=== PATIENT | female | born 1995 | race African-American/Black ===

== ENCOUNTER → 2017-06-22 | Outpatient (CLI) | payer BC ==
[2017-06-22 13:30] LABS: PREG INTERNAL NEGATIVE QC NEG CLEAR BACKGROUND; PREG INTERNAL POSITIVE QC POS CONTROL LINE
== END | disposition home or self-care (01) ==
LOC: C.LAB1850 11:32
PROVIDERS: ATTEND Physician Assistant
DX: N89.8 Other specified noninflammatory disorders of vagina (principal); N91.2 Amenorrhea, unspecified

== ENCOUNTER → 2017-07-27 | Outpatient (CLI) | payer BC ==
[2017-07-27 14:59] LABS: CALCULATED INSULIN SENSITIVITY 0.265; INSULIN FASTING 50.8 mU/L (3-25); INSULIN LOG 1.7059
== END | disposition home or self-care (01) ==
LOC: C.LAB1850 12:52
PROVIDERS: ATTEND Obstetrics & Gynecology
DX: E28.2 Polycystic ovarian syndrome (principal)

== ENCOUNTER → 2017-08-09 | Outpatient (CLI) | payer BC ==
[~2017-08-09] MED LIST: AMOX875T PO; AMPH10TA2 PO; BUPR-79 PO; BUPR200T2 PO; DEXTLIQ81 PO; FAMO20TA9 PO; GLC/500 PO; IBUP-1050 PO; IBUP-1277 PO; IBUP-1451 PO; ONDA4TAB10 SL; PHEN-905 PO; PRED50TA PO; SERT50TA PO; SPR28 PO
== END | disposition home or self-care (01) ==
LOC: C.LAB1850 14:31
PROVIDERS: ATTEND Obstetrics & Gynecology
DX: E88.81 Metabolic syndrome and other insulin resistance (principal)

== ENCOUNTER 2017-09-10 23:16 | Emergency (ER) | payer BC ==
[~2017-09-10] VITALS: Ht 172.7 cm; Wt 133.2 kg
[2017-09-10 23:21] VITALS: TEMP 37.7; Ht 172.7 cm; Wt 133.2 kg
[2017-09-10] MEDS ORDERED: ONDANSETRON INJ 2 MG/ML 2 ML VIAL IV STA (23:39)
[2017-09-10] MEDS ORDERED: SODIUM CHLORIDE 0.9% 1000ML 1,000 ML IV STA (23:41)
[2017-09-10] MEDS ORDERED: ACETAMINOPHEN 500 MG TAB PO STA (23:41)
[2017-09-10] MEDS ORDERED: SERT50TA PO (23:57)
[2017-09-10] MEDS ORDERED: DEXTLIQ81 PO (23:58)
[2017-09-10] MEDS ORDERED: PHEN-905 PO (23:58)
[2017-09-10] MEDS ORDERED: IBUP-1050 PO (23:58)
[2017-09-11 00:31] LABS: BASO % 0.2 %; BASO ABS # 0.01 K/uL (0-0.2); EOS % 3.1 %; EOS ABS # 0.19 K/uL (0-0.5); HEMATOCRIT 42.8 % (37-47); HEMOGLOBIN 14.1 g/dL (12.0-16.0); IG# 0.02 K/uL (0.00-0.02); LYMPH % 41.2 %; MEAN CELL VOLUME 77.1 fL (80-100); MEAN CORPUSCULAR HEMOGLOBIN 25.4 pg (25-34); MEAN CORPUSCULAR HGB CONC 32.9 g/dl (32-36); MEAN PLATELET VOLUME 9.5 fL (7.4-10.4); MONO % 11.5 %; NEUT % 43.7 %; NEUT ABS # 2.65 K/uL (1.4-6.5); PLATELET COUNT 286 K/uL (130-400); RED CELL DISTRIBUTION WIDTH CV 13.9 % (11.5-14.5); RED CELL DISTRIBUTION WIDTH SD 39.6 fL (36.4-46.3); WHITE BLOOD COUNT 6.07 K/uL (4.8-10.8)
[2017-09-11 00:48] LABS: CALCIUM 8.3 mg/dl (8.5-10.1); CREATININE 0.85 mg/dl (0.60-1.20); POTASSIUM 3.7 mmol/L (3.5-5.1)
[2017-09-11 00:49] LABS: INFLUENZA B ANTIGEN Neg for Influ B (NEG)
[2017-09-11] MEDS ORDERED: KETOROLAC TROMETHAMINE 30 MG/ML VIAL IV STA (00:49)
--- NOTE | 2017-09-11 01:39 | EMERGENCY ROOM VISIT NOTE ---
History Report prepared by Gayle: Ki Shin Under the Supervision of: Dr. Naye Suarez D.O. First contact with patient: 23:24 Chief Complaint: FLU LIKE SX Stated Complaint: COUGHING,NAUSEA,BODY ACHE,EYE PAIN,DIARRHEA,HEADAC History of Present Illness The patient is a 22 year old female who presents to the Emergency Room with complaints of persistent generalized illness beginning four days ago. Her symptoms include productive cough, nausea, body aches, subjective fevers, runny nose, sore throat, diarrhea, and headache. She began vomiting today, and vomited two times total. The patient also complains of lower back pain. Her diarrhea improved over the past three days, but returned again today. She denies any blood in her stool or urinary symptoms. The patient states that she has had trouble sleeping since her symptoms began. She has taken DayQuil, NyQuil , and Motrin for her symptoms but has seen no relief. She denies any known sick contacts. The patient denies recent travel. Her symptoms are often worse at night. She has a history of asthma, and states that she has been using her inhaler more often recently. Source of History: patient Onset: Four days ago Position: other (generalized) Quality: other (illness) Timing: other (persistent) Modifying Factors (Worsening): other (night time) Associated Symptoms: + fevers, + headache, + sorethroat, + cough (productive ), + nausea, + vomiting (x2), + abdominal pain (lower), + back pain (lower), + diarrhea, No hematochezia, No urinary symptoms Note: Symptoms: runny nose, body aches, and eye pain. Review of Systems See HPI for pertinent positives & negatives. A total of 10 systems reviewed and were otherwise negative. Past Medical & Surgical Medical Problems: (1) GERD (gastroesophageal reflux disease) (2) PCOS (polycystic ovarian syndrome) Family History No pertinent family history stated. Social History Smoking Status: Never Smoker Occupation Status: [employer] student Current/Historical Medications Scheduled Sertraline (Zoloft), 50 MG PO DAILY Scheduled PRN Dextromethorphan-Phenylephrine (Day-Time Cold/Flu Relief), 1 DOSE PO UD PRN for cold/flu Ibuprofen (Advil), 400 MG PO Q4 PRN for Pain or Fever Nifgvvqelrowx-Vbblwvpyzw-Xxasx (Nyquil Severe Cold/Flu 5-6.25-10-325 mg/15Ml), 1 DOSE PO UD PRN for cold/flu Allergies Coded Allergies: No Known Drug Allergy (Verified Allergy, Unknown, n/a, 09/10/17) Uncoded Allergies: APPLES (Allergy, Unknown, gums swell, 05/31/16) Physical Exam Vital Signs Date Time Temp Pulse Resp B/P (MAP) Pulse Ox O2 Delivery O2 Flow Rate FiO2 09/11/17 02:51 74 16 116/64 98 09/11/17 01:42 97 18 132/82 100 09/11/17 00:06 98 19 121/77 97 Room Air 09/10/17 23:21 37.7 110 20 139/88 97 Room Air Physical Exam GENERAL: alert, well appearing, well nourished, no distress, non-toxic EYE EXAM: normal conjunctiva, PERRL and EOM's grossly intact OROPHARYNX: no exudate, no erythema, lips, buccal mucosa, and tongue normal and mucous membranes are moist NECK: supple, no nuchal rigidity, no adenopathy, non-tender LUNGS: Slight wheeze in the right lung base posteriorly. No rales or rhonchi. No increased work of breathing. HEART: no murmurs, S1 normal and S2 normal ABDOMEN: abdomen soft, non-tender, normo-active bowel sounds, no masses, no rebound or guarding. BACK: Back is symmetrical on inspection and there is no deformity, no midline tenderness, no CVA tenderness. SKIN: no rashes and no bruising UPPER EXTREMITIES: upper extremities are grossly normal. LOWER EXTREMITIES: No pitting edema. NEURO EXAM: Normal sensorium, cranial nerves II-XII grossly intact, normal speech, no gross weakness of arms, no gross weakness of legs. Gross sensation intact. Medical Decision & Procedures ER Provider Diagnostic Interpretation: Two View Chest X-ray interpreted by me: No cardiomegaly. No effusions. No wide mediastinum. No focal infiltrate. Bilateral nipple piercings noted. Laboratory Results 09/10/17 00:05 Red Blood Count 5.55, Mean Corpuscular Volume 77.1, Mean Corpuscular Hemoglobin 25.4, Mean Corpuscular Hemoglobin Concent 32.9, Mean Platelet Volume 9.5, Neutrophils (%) (Auto) 43.7, Lymphocytes (%) (Auto) 41.2, Monocytes (%) (Auto) 11.5, Eosinophils (%) (Auto) 3.1, Basophils (%) (Auto) 0.2, Neutrophils # (Auto ) 2.65, Lymphocytes # (Auto) 2.50, Monocytes # (Auto) 0.70, Eosinophils # (Auto ) 0.19, Basophils # (Auto) 0.01 09/10/17 00:05 Test 09/10/17 00:05 09/11/17 02:00 White Blood Count 6.07 K/uL (4.8-10.8) Red Blood Count 5.55 M/uL (4.2-5.4) Hemoglobin 14.1 g/dL (12.0-16.0) Hematocrit 42.8 % (37-47) Mean Corpuscular Volume 77.1 fL (80-100) Mean Corpuscular Hemoglobin 25.4 pg (25-34) Mean Corpuscular Hemoglobin Concent 32.9 g/dl (32-36) Platelet Count 286 K/uL (130-400) Mean Platelet Volume 9.5 fL (7.4-10.4) Neutrophils (%) (Auto) 43.7 % Lymphocytes (%) (Auto) 41.2 % Monocytes (%) (Auto) 11.5 % Eosinophils (%) (Auto) 3.1 % Basophils (%) (Auto) 0.2 % Neutrophils # (Auto) 2.65 K/uL (1.4-6.5) Lymphocytes # (Auto) 2.50 K/uL (1.2-3.4) Monocytes # (Auto) 0.70 K/uL (0.11-0.59) Eosinophils # (Auto) 0.19 K/uL (0-0.5) Basophils # (Auto) 0.01 K/uL (0-0.2) RDW Standard Deviation 39.6 fL (36.4-46.3) RDW Coefficient of Variation 13.9 % (11.5-14.5) Immature Granulocyte % (Auto) 0.3 % Immature Granulocyte # (Auto) 0.02 K/uL (0.00-0.02) Anion Gap 11.0 mmol/L (3-11) Est Creatinine Clear Calc Drug Dose 151.4 ml/min Estimated GFR () 113.5 Estimated GFR (Non- 97.9 BUN/Creatinine Ratio 11.0 (10-20) Calcium Level 8.3 mg/dl (8.5-10.1) Human Chorionic Gonadotropin, Qual NEG (NEG) Influenza Type A Antigen POS for Influ A (NEG) Influenza Type B Antigen Neg for Influ B (NEG) Urine Color YELLOW Urine Appearance CLEAR (CLEAR) Urine pH 5.0 (4.5-7.5) Urine Specific [place] 1.023 (1.000-1.030) Urine Protein NEG (NEG) Urine Glucose (UA) NEG (NEG) Urine Ketones NEG (NEG) Urine Occult Blood TRACE (NEG) Urine Nitrite NEG (NEG) Urine Bilirubin NEG (NEG) Urine Urobilinogen NEG (NEG) Urine Leukocyte Esterase TRACE (NEG) Urine WBC (Auto) 1-5 /hpf (0-5) Urine RBC (Auto) 5-10 /hpf (0-4) Urine Hyaline Casts (Auto) 1-5 /lpf (0-5) Urine Epithelial Cells (Auto) 10-20 /lpf (0-5) Urine Bacteria (Auto) NEG (NEG) Laboratory results per my review. Medications Administered Medications (Trade) Dose Ordered Sig/Kelly Route Start Time Stop Time Status Last Admin Dose Admin Ondansetron HCl (Zofran Inj) 4 mg NOW STAT IV 09/10/17 23:39 09/10/17 23:41 DC 09/11/17 00:03 4 MG Sodium Chloride 1,000 ml @ 999 mls/hr Q1H1M STAT IV 09/10/17 23:41 09/11/17 00:41 DC 09/11/17 00:03 999 MLS/HR Acetaminophen (Tylenol Tab) 1,000 mg NOW STAT PO 09/10/17 23:41 09/10/17 23:42 DC 09/11/17 00:02 1,000 MG Ketorolac Tromethamine (Toradol Inj) 30 mg NOW STAT IV 09/11/17 00:49 09/11/17 00:50 DC 09/11/17 01:11 30 MG Ondansetron HCl (ZOFRAN ODT 4MG Home Pack) 1 homepack STK-MED ONCE .ROUTE 09/11/17 02:48 09/11/17 02:49 DC 09/11/17 02:49 1 HOMEPA ED Course 2326: The patient was evaluated in room A4B. A complete history and physical exam was performed. 0103: I reassessed the patient. She feels better. I explained her test results to her. 0250: Upon reevaluation, the patient is feeling better. I discussed the findings and the treatment plan with the patient. She verbalizes agreement and understanding. She was discharged home. Medical Decision Differential diagnosis: Etiologies such as viral syndrome, otitis, pharyngitis, pneumonia, influenza, meningitis, urinary tract infection, sepsis, bacteremia, as well as others were entertained. Pt well appearing despite complaints. No recurrent vomiting or diarrhea. Pt felt improved with IVF and meds. Flu A +. Discussed with patient and hydration , treatment of fevers and body aches, rest, symptoms to watch and return for, she verbalized understanding was agreeable with plan. No evidence of pneumonia , doubt bacteremia/sepsis, back pain more likely from body aches is no evidence for UTI. Doubt additional underlying GI pathology, feel her symptoms are related to the flu. Patient well-appearing at time of discharge, vital signs stable throughout, tolerating by mouth. Medication Reconcilliation Current Medication List: was personally reviewed by me Blood Pressure Screening Patient's blood pressure: Normal blood pressure Blood pressure disposition: Did not require urgent referral Impression Primary Impression: Influenza Scribe Attestation The scribe's documentation has been prepared under my direction and personally reviewed by me in its entirety. I confirm that the note above accurately reflects all work, treatment, procedures, and medical decision making performed by me. Departure Information Dispostion Home / Self-Care Referrals No Doctor, Assigned (PCP) Patient Instructions My [facility] Additional Instructions Please try to sip clear liquids at frequent intervals to stay well hydrated, primarily water. You may use tylenol and ibuprofen as needed for fevers and pain. You may continue using your inhaler as needed. You may use the nausea medication as needed. If you have any worsening cough or trouble breathing, have recurrent vomiting or worsening diarrhea, develop lightheadedness, chest pain, rash/sore, notice blood in your sputum, vomit, or stool, or you have any other new or concerning symptoms, please return to the emergency room.
[2017-09-11] MEDS ORDERED: ONDANSETRON HOME PACK 4MG OD TAB ONE (02:48)
[2017-09-11 02:51] VITALS: BP 116/64; PULSE 74; O2SAT 98
--- NOTE | 2017-09-11 06:40 | DIAGNOSTIC IMAGING REPORT ---
CHEST 2 VIEWS ROUTINE CLINICAL HISTORY: cough, f/c dyspnea COMPARISON STUDY: 05/31/2016 FINDINGS: The bones soft tissues and hemidiaphragms are normal. The cardiomediastinal silhouette is normal. The lungs are clear. The pulmonary vasculature is normal. IMPRESSION: Negative chest. The above report was generated using voice recognition software. It may contain grammatical, syntax or spelling errors. Electronically signed by: Vasquez Gonsalves M.D. 09/11/2017 6:38 AM Dictated Date/Time: 09/11/2017 6:38 AM
== END 2017-09-11 02:50 | disposition home or self-care (01) ==
LOC: C.EDB 23:17 → C.EDA 09-11 02:50
DX: J10.1 Influenza due to other identified influenza virus with other respiratory manifestations (principal); J45.909 Unspecified asthma, uncomplicated; K21.9 Gastro-esophageal reflux disease without esophagitis; E28.2 Polycystic ovarian syndrome; Z79.899 Other long term (current) drug therapy

== ENCOUNTER 2017-09-18 22:16 | Emergency (ER) | payer BC ==
[~2017-09-18] VITALS: Ht 170.2 cm; Wt 135.8 kg
[~2017-09-18 22:16] MED LIST changes: -AMOX875T PO; -AMPH10TA2 PO; -BUPR-79 PO; -BUPR200T2 PO; -FAMO20TA9 PO; -GLC/500 PO; -IBUP-1277 PO; -IBUP-1451 PO; -ONDA4TAB10 SL; -PRED50TA PO; -SPR28 PO
[2017-09-18 22:26] VITALS: TEMP 36.4; Ht 170.2 cm; Wt 135.8 kg
--- NOTE | 2017-09-18 23:34 | EMERGENCY ROOM VISIT NOTE ---
History Report prepared by Gayle: Qasim Chang Under the Supervision of: Dr. Marcos Reyes M.D. First contact with patient: 23:25 Chief Complaint: HEADACHE Stated Complaint: HEADACHE History of Present Illness The patient is a 22 year old female who presents to the Emergency Room with complaints of a constant headache beginning a week ago. The patient states that she was diagnosed with influenza a week ago, and has had a headache since. She notes that turning off the lights does not improve her symptoms. She reports that she has been taking Tylenol and ibuprofen with no relief of her symptoms, but has not taken any recent antibiotics. The patient states that her symptoms feel like a pounding sensation and a pressure. She notes that she also occasionally feels dizzy but denies any nausea, vomiting, weakness in her arms/ legs, seizures, and trauma. She reports that her sinuses do not feel clogged. The patient states that the pressure worsens when she lies down. She notes that she has a history of underlying diabetes and polycystic ovarian syndrome. Source of History: patient Onset: a week ago Position: head Quality: pressure, other (pounding) Timing: constant Modifying Factors (Worsening): other (lying down) Associated Symptoms: No nausea, No vomiting Note: She also complains of dizziness. She denies any weakness in her arms/legs, seizures, and clogged sinuses. Review of Systems See HPI for pertinent positives & negatives. A total of 6 systems reviewed and were otherwise negative. Past Medical & Surgical Medical Problems: (1) GERD (gastroesophageal reflux disease) (2) Influenza (3) PCOS (polycystic ovarian syndrome) Family History Diabetes mellitus FH: kidney disease FH: lung disease FHx: cancer FHx: gallbladder disease FHx: heart disease Hypertension Social History Smoking Status: Never Smoker Marital Status: single Housing Status: lives with roommate Occupation Status: [employer] student Current/Historical Medications Scheduled Amoxicillin & Pot Clavulanate (Augmentin 875-125 mg), 875 MG PO BID Prednisone (Prednisone), 50 MG PO DAILY Sertraline (Zoloft), 50 MG PO DAILY Scheduled PRN Dextromethorphan-Phenylephrine (Day-Time Cold/Flu Relief), 1 DOSE PO UD PRN for cold/flu Ibuprofen (Advil), 400 MG PO Q4 PRN for Pain or Fever Kqwsqbwcefiht-Rmritbjhdr-Waale (Nyquil Severe Cold/Flu 5-6.25-10-325 mg/15Ml), 1 DOSE PO UD PRN for cold/flu Allergies Coded Allergies: No Known Drug Allergy (Verified Allergy, Unknown, n/a, 09/18/17) Uncoded Allergies: APPLES (Allergy, Unknown, gums swell, 05/31/16) Physical Exam Vital Signs Date Time Temp Pulse Resp B/P (MAP) Pulse Ox O2 Delivery O2 Flow Rate FiO2 09/19/17 00:11 74 20 150/106 99 09/18/17 22:26 36.4 77 18 132/80 95 Physical Exam GENERAL: Patient is well appearing and in minimal distress. HEENT: No acute trauma, normocephalic atraumatic, mucous membranes moist, no nasal congestion, no scleral icterus. Bulging erythematous right TM, mild erythema to the distal right canal. NECK: No stridor, no adenopathy, no meningismus, trachea is midline. LUNGS: No dyspnea. Clear to auscultation and equal bilaterally. No wheeze, no rhonchi. HEART: Regular rate and rhythm. No murmurs, rubs, gallops appreciated. EXTREMITIES: Normal motion all extremities, no cyanosis, no edema. NEUROLOGIC: Alert and oriented, no acute motor or sensory deficits, no focal weakness, cranial nerves grossly intact. SKIN: No rash, no jaundice, no diaphoresis. Medical Decision & Procedures Medications Administered Medications (Trade) Dose Ordered Sig/Kelly Route Start Time Stop Time Status Last Admin Dose Admin Oxycodone HCl (Roxicodone Immediate Rel 5MG Home Pack) 1 homepack UD ONCE PO 09/18/17 23:45 09/18/17 23:46 DC 09/19/17 00:07 1 HOMEPACK Amoxicillin/ Clavulanate Potassium (Augmentin Tab) 875 mg ONE ONCE PO 09/18/17 23:45 09/18/17 23:46 DC 09/19/17 00:06 875 MG Prednisone (PredniSONE TAB) 60 mg NOW STAT PO 09/18/17 23:34 09/18/17 23:35 DC 09/19/17 00:07 60 MG ED Course 2327: The patient was evaluated in room C2. A complete history and physical exam was performed. 2517: Reevaluated the patient. Discussed results and discharge instructions. She verbalized understanding and agreement. The patient is ready for discharge. Medical Decision 22 yr old female with flu last week now with right ear/head pain, congestion, dizziness on moving and pain worse with laying back. OM on right by exam though there is a bit of erythema of canal itself. She has sinus congestion as well. She has tolerated Prednisone previously thus seems reasonable to help decrease inflammation adding on this. Discussed keeping well hydrated. Made clear if severe thirst and increased urination or other abnormal symptoms we will need to check her BSG. She has no evidence of mastoiditis, meningitis, encephalitis, abscess, dissection, etc. We will treat with augmentin given canal erythema and bulging TM. Reviewed symptoms requiring RTED. Reviewed restrictions regarding narcotics. [place] Drug Monitoring Program Search Results: no issues identified Medication Reconcilliation Current Medication List: was personally reviewed by me Blood Pressure Screening Patient's blood pressure: Elevated blood pressure Blood pressure disposition: Elevated BP felt to be situational Impression Primary Impression: Otitis media, right Scribe Attestation The scribe's documentation has been prepared under my direction and personally reviewed by me in its entirety. I confirm that the note above accurately reflects all work, treatment, procedures, and medical decision making performed by me. Departure Information Dispostion Home / Self-Care Prescriptions Prednisone (PREDNISONE) 50 Mg Tab 50 MG PO DAILY for 4 Days, #4 TAB Prov: Marcos Reyes M.D. 09/18/17 Amoxicillin & Pot Clavulanate (Augmentin 875-125 mg) 1 Tab Tab 875 MG PO BID for 7 Days, #14 TAB Prov: Marcos Reyes M.D. 09/18/17 Referrals [facility] (PCP) Forms HOME CARE DOCUMENTATION FORM, IMPORTANT VISIT INFORMATION Patient Instructions ED Otitis Media Acute Adult, My [facility] Additional Instructions You have received a narcotic pain medicatio. These medications may cause drowsiness and should not be used with other sedative medications. Do not drive , drink alcohol, perform dangerous activities, nor make important decisions after taking these medications. terminal operations manager use or inappropriate use may lead to addiction.
[2017-09-18] MEDS ORDERED: AMOX875T PO (23:36)
[2017-09-18] MEDS ORDERED: PRED50TA PO (23:36)
[2017-09-18] MEDS ORDERED: OXYCODONE IR HOME PACK PO ONE (23:45)
[2017-09-18] MEDS ORDERED: AMOXICILLIN/CLAVULANATE TAB 875 MG TAB PO ONE (23:45)
[2017-09-19 00:11] VITALS: BP 150/106; PULSE 74; O2SAT 99
== END 2017-09-19 00:12 | disposition home or self-care (01) ==
LOC: C.EDB 22:18 → C.EDC 09-19 00:12
DX: H66.91 Otitis media, unspecified, right ear (principal); R51 Headache; R42 Dizziness and giddiness; E11.9 Type 2 diabetes mellitus without complications; E28.2 Polycystic ovarian syndrome; K21.9 Gastro-esophageal reflux disease without esophagitis; Z79.899 Other long term (current) drug therapy; Z91.018 Allergy to other foods; Z82.49 Family history of ischemic heart disease and other diseases of the circulatory system; Z83.3 Family history of diabetes mellitus; Z83.6 Family history of other diseases of the respiratory system; Z83.79 Family history of other diseases of the digestive system; Z84.1 Family history of disorders of kidney and ureter

== ENCOUNTER 2017-09-24 14:26 | Emergency (ER) | payer BC ==
[~2017-09-24] VITALS: Ht 170.2 cm; Wt 134.1 kg
[~2017-09-24 14:26] MED LIST changes: +AMOX875T PO
[2017-09-24 14:30] VITALS: TEMP 36.7; Ht 170.2 cm; Wt 134.1 kg
[2017-09-24] MEDS ORDERED: IBUPROFEN 800 MG TAB PO STA (14:48)
[2017-09-24] MEDS ORDERED: ACETAMINOPHEN 500 MG TAB PO STA (14:48)
--- NOTE | 2017-09-24 14:55 | EMERGENCY ROOM VISIT NOTE ---
History Report prepared by Gayle: Leah Biswas Under the Supervision of: Dr. Ted Benedict M.D. First contact with patient: 14:44 Chief Complaint: HEADACHE Stated Complaint: SEVERE HEADACHE/PRESSURE History of Present Illness The patient is a 22 year old female who presents to the Emergency Room with complaints of a persistent headache that started gradually a couple of hours ago but did not take any medication. She rates her pain a 10/10 in severity. She notes she was here one week ago with headaches but she was diagnosed with ear infection. She was prescribed Amoxicillin and Prednisone. She notes she is still taking the Amoxicillin. She denies any history of migraines. She states Tylenol and Ibuprofen do not work for her symptoms. When she takes Ibuprofen, she takes 2 tablets every 6 hours. She notes she has been experiencing nausea and diarrhea. She denies any vomiting, congestion, body aches, or burning when urinating. The patient notes she had the flu 2 weeks ago. Source of History: patient Onset: a couple of hours ago Position: head Symptom Intensity: 10/10 Timing: other (persistent) Associated Symptoms: + nausea, + diarrhea, No vomiting, No urinary symptoms Review of Systems See HPI for pertinent positives and negatives. A total of ten systems were reviewed and were otherwise negative. Past Medical & Surgical Medical Problems: (1) GERD (gastroesophageal reflux disease) (2) Influenza (3) PCOS (polycystic ovarian syndrome) Family History Diabetes mellitus FH: kidney disease FH: lung disease FHx: cancer FHx: gallbladder disease FHx: heart disease Hypertension Social History Smoking Status: Never Smoker Marital Status: single Housing Status: lives with roommate Occupation Status: [employer] student Current/Historical Medications Scheduled Famotidine (Pepcid), 20 MG PO BID Ondasetron Odt (Zofran Odt), 4 MG SL Q6H Sertraline (Zoloft), 50 MG PO DAILY Scheduled PRN Dextromethorphan-Phenylephrine (Day-Time Cold/Flu Relief), 1 DOSE PO UD PRN for cold/flu Ibuprofen (Advil), 400 MG PO Q4 PRN for Pain or Fever Ibuprofen Tab (Motrin), 800 MG PO Q8H PRN for Pain Dpjfvdlkmjesu-Qhhwwcgait-Oqieb (Nyquil Severe Cold/Flu 5-6.25-10-325 mg/15Ml), 1 DOSE PO UD PRN for cold/flu Allergies Coded Allergies: No Known Drug Allergy (Verified Allergy, Unknown, n/a, 09/24/17) Uncoded Allergies: APPLES (Allergy, Unknown, gums swell, 05/31/16) Physical Exam Vital Signs Date Time Temp Pulse Resp B/P (MAP) Pulse Ox O2 Delivery O2 Flow Rate FiO2 09/24/17 15:23 83 18 138/75 97 09/24/17 14:30 36.7 91 20 128/81 98 Room Air Physical Exam GENERAL: Awake, alert, well-appearing, in no distress HENT: Normocephalic, atraumatic. Oropharynx unremarkable. Dry mucus membranes. Mild injection in right TM. EYES: Normal conjunctiva. Sclera non-icteric. NECK: Supple. No nuchal rigidity. FROM. No JVD. RESPIRATORY: Clear to auscultation. CARDIAC: Regular rate, normal rhythm. Extremities warm and well perfused. Pulses equal. ABDOMEN: Soft, non-distended. No tenderness to palpation. No rebound or guarding. No masses. RECTAL: Deferred. MUSCULOSKELETAL: Chest examination reveals no tenderness. The back is symmetrical on inspection without obvious abnormality. There is no CVA tenderness to palpation. No joint edema. LOWER EXTREMITIES: Calves are equal size bilaterally and non-tender. No edema. No discoloration. NEURO: Normal sensorium. No sensory or motor deficits noted. Normal cerebellar function with uaocvl-zb-tdbu, alternating palms, pnru-wm-pjnw SKIN: No rash or jaundice noted. Medical Decision & Procedures Medications Administered Medications (Trade) Dose Ordered Sig/Kelly Route Start Time Stop Time Status Last Admin Dose Admin Acetaminophen (Tylenol Tab) 1,000 mg NOW STAT PO 09/24/17 14:48 09/24/17 14:58 DC 09/24/17 14:48 1,000 MG Ibuprofen (Motrin Tab) 800 mg NOW STAT PO 09/24/17 14:48 09/24/17 14:58 DC 09/24/17 14:48 800 MG Famotidine (Pepcid Tab) 20 mg NOW ONCE PO 09/24/17 15:00 09/24/17 15:01 DC 09/24/17 15:00 20 MG Ondansetron HCl (Zofran Odt) 4 mg ONE ONCE PO 09/24/17 15:00 09/24/17 15:01 DC 09/24/17 15:00 4 MG ED Course 1444: The patient was evaluated in room B2. A complete history and physical exam was performed. 1535: I reevaluated the patient. Discussed results and discharge instructions: She verbalized understanding and agreement. The patient is ready for discharge. Medical Decision I reviewed the patient's past medical history, medications, and the nursing notes as described above. Differential diagnosis: Etiologies such as migraine headache, meningitis, sinusitis, CO exposure, ICH, SAH, infection, tumor, headache, sinus thrombosis, arterial dissection, as well as others were entertained. The patient is a 22 y/o woman presents to the emergency department with DYKES that began gradually 2 hours RN ANESTHESIOLOGY in the setting of being treated for right OM after seen in ED last week per HPI. Of note, patient had flu like sx 2 weeks ago. On arrival, the patient is well-appearing, AFVSS. Neuro intact, including normal cerebellar function with jgkucc-ne-bdcv, alternating palms, rwkc-kq-lfhi. Neck supple, FROM. Given patient has not taken anything for her DYKES and is otherwise well-appearing, no indication for further w/u. Plan for PO APAP/IB, PO hydration. pepcid/zofran and [facility] f/u. Findings and plan for follow-up reviewed with patient. Patient agreeable and d/c'd per discharge instructions. Medication Reconcilliation Current Medication List: was personally reviewed by me Impression Primary Impression: Tension headache Scribe Attestation The scribe's documentation has been prepared under my direction and personally reviewed by me in its entirety. I confirm that the note above accurately reflects all work, treatment, procedures, and medical decision making performed by me. Departure Information Dispostion Home / Self-Care Prescriptions Famotidine (PEPCID) 20 Mg Tab 20 MG PO BID for 10 Days, #20 TAB Prov: Ted Benedict M.D. 09/24/17 Ondasetron Odt (ZOFRAN ODT) 4 Mg Tab 4 MG SL Q6H for Nausea, #10 TAB Prov: Ted Benedict M.D. 09/24/17 Ibuprofen Tab (MOTRIN) 800 Mg Tab 800 MG PO Q8H Y for Pain, #21 TAB Prov: Ted Benedict M.D. 09/24/17 Referrals No Doctor, Assigned (PCP) Patient Instructions ED Headache Tension, My [facility] Additional Instructions Please follow up with [facility] in the next 1-2 days for re-evaluation. You likely have a tension headache. Otherwise, your exam did not show signs of an emergent condition at this time. Continue your current antibiotic. Acetaminophen or ibuprofen for pain and fevers as needed. Pepcid for acid reduction. Zofran as needed for nausea. Drink plenty of fluids to ensure hydration. Return to the emergency department for worsening symptoms as described in the accompanying instructions.
[2017-09-24] MEDS ORDERED: FAMOTIDINE 20 MG TAB PO ONE (15:00)
[2017-09-24] MEDS ORDERED: ONDANSETRON 4MG OD TAB PO ONE (15:00)
[2017-09-24] MEDS ORDERED: FAMO20TA9 PO (15:01)
[2017-09-24] MEDS ORDERED: ONDA4TAB10 SL (15:01)
[2017-09-24] MEDS ORDERED: IBUP-1451 PO (15:01)
[2017-09-24 15:23] VITALS: BP 138/75; PULSE 83; O2SAT 97
== END 2017-09-24 15:24 | disposition home or self-care (01) ==
LOC: C.EDB 14:29
DX: G44.209 Tension-type headache, unspecified, not intractable (principal); R19.7 Diarrhea, unspecified; K21.9 Gastro-esophageal reflux disease without esophagitis; E28.2 Polycystic ovarian syndrome; Z87.09 Personal history of other diseases of the respiratory system; Z83.3 Family history of diabetes mellitus; Z82.49 Family history of ischemic heart disease and other diseases of the circulatory system; Z79.899 Other long term (current) drug therapy

== ENCOUNTER 2017-10-06 16:28 | Emergency (ER) | payer BC ==
[~2017-10-06] VITALS: Ht 170.2 cm; Wt 136.3 kg
[~2017-10-06 16:28] MED LIST changes: -AMOX875T PO; +IBUP-1451 PO; +ONDA4TAB10 SL; -SERT50TA PO
[2017-10-06 16:31] VITALS: TEMP 36.8; Ht 170.2 cm; Wt 136.3 kg
[2017-10-06 17:22] LABS: HEMATOCRIT 41.6 % (37-47); HEMOGLOBIN 13.5 g/dL (12.0-16.0); MEAN CELL VOLUME 77.6 fL (80-100); MEAN CORPUSCULAR HEMOGLOBIN 25.2 pg (25-34); MEAN CORPUSCULAR HGB CONC 32.5 g/dl (32-36); MEAN PLATELET VOLUME 9.4 fL (7.4-10.4); PLATELET COUNT 306 K/uL (130-400); RED CELL DISTRIBUTION WIDTH CV 14.4 % (11.5-14.5); RED CELL DISTRIBUTION WIDTH SD 40.6 fL (36.4-46.3); WHITE BLOOD COUNT 7.51 K/uL (4.8-10.8)
[2017-10-06] MEDS ORDERED: IBUP-1277 PO (17:26)
[2017-10-06 17:47] LABS: ALBUMIN 3.6 gm/dl (3.4-5.0); ALT/SGPT 62 U/L (12-78); BLOOD UREA NITROGEN 10 mg/dl (7-18); CALCIUM 8.7 mg/dl (8.5-10.1); CARBON DIOXIDE 23 mmol/L (21-32); CREATININE 0.67 mg/dl (0.60-1.20); GLUCOSE 112 mg/dl (70-99); POTASSIUM 3.8 mmol/L (3.5-5.1); SODIUM 139 mmol/L (136-145)
[2017-10-06 17:58] LABS: ALKALINE PHOSPHATASE 72 U/L (45-117); AST/SGOT 35 U/L (15-37); TOTAL PROTEIN 7.4 gm/dl (6.4-8.2)
[2017-10-06 18:22] VITALS: BP 145/86; PULSE 72; O2SAT 94
--- NOTE | 2017-10-06 22:41 | EMERGENCY ROOM VISIT NOTE ---
History Report prepared by Gayle: Alfred Mcelroy Under the Supervision of: Dr. River Archibald M.D. 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 She states that she has been having suicidal thoughts more than normal. She notes the thoughts have been more "heavy," and yesterday she had a plan to commit suicide. She cut her left wrist yesterday. She states that she would rather take Ibuprofen, though she did not admit to taking any. She states that she looked up how much to take. She went to see a counselor at [facility] yesterday. She states that she has been following up with a psychiatrist for depression and anxiety. She was seen by her psychiatrist today and they recommended she come to the ED for evaluation. She states that she was not prepared to come to the ED. She states that she came in by police because it was a free ride. She reports that she has some academic stressors, because she feels that she is not doing well in college. 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 She also states that she slept through an interview that she was supposed to help out with. She denies any history of hospitalizations due to depression. She states that she has never had a plan before yesterday. She states that she has "underlying" diabetes and sees an generation engineering technologist, though she has not had the blood tests yet to begin treatment. She was placed on Zoloft at the beginning of the school year and is still taking it. She reports recently having the flu and an ear infection, for which she was prescribed Amoxicillin and Prednisone. She denies any fevers, vomiting, chest pain, or abdominal pain. She denies any chance of . She denies any use of illicit drugs or alcohol. Source of History: patient Onset: yesterday Position: other (global) Quality: other (suicidal gesture) Timing: other (episodic) Modifying Factors (Relieving): other (None) Associated Symptoms: No fevers, No chest pain, No vomiting, No abdominal pain Review of Systems See HPI for pertinent positives & negatives. A total of 10 systems reviewed and were otherwise negative. Past Medical & Surgical Medical Problems: (1) Anxiety (2) Depression (3) GERD (gastroesophageal reflux disease) (4) Influenza (5) PCOS (polycystic ovarian syndrome) Family History Diabetes mellitus FH: kidney disease FH: lung disease FHx: cancer FHx: gallbladder disease FHx: heart disease Hypertension Social History Smoking Status: Former Smoker Smokeless Tobacco Use: No Alcohol Use: none Drug Use: none Marital Status: single Housing Status: lives with roommate Occupation Status: [employer] student Current/Historical Medications Scheduled Sertraline (Zoloft), 75 MG PO DAILY Scheduled PRN Ibuprofen (Advil), 400-600 MG PO Q6H PRN for Pain or Fever Allergies Coded Allergies: No Known Drug Allergy (Verified Allergy, Unknown, n/a, 09/24/17) Uncoded Allergies: APPLES (Allergy, Unknown, gums swell, 05/31/16) Physical Exam Vital Signs Date Time Temp Pulse Resp B/P (MAP) Pulse Ox O2 Delivery O2 Flow Rate FiO2 10/06/17 18:22 72 18 145/86 94 Room Air 10/06/17 16:31 36.8 86 18 137/88 94 Room Air Physical Exam Constitutional: Vital signs reviewed. Eyes: Pupils are equal round reactive to light. Conjunctiva are noninjected. ENT: Pharynx is clear without erythema or exudate. Mucous membranes are moist. Neck supple without meningeal signs. Respiratory: Clear to auscultation bilaterally. Breath sounds are equal bilaterally. Cardiovascular: Regular rate and rhythm. No rubs or gallops. GI: Soft, nondistended and nontender. Bowel sounds are present. Musculoskeletal: Very superficial lacerations to the volar aspect of the left distal wrist. No signs of bleeding or infection. Integumentary: No cyanosis. Neurological: The patient is awake and alert. No focal deficits. Psychiatric: Depressed affect. Medical Decision & Procedures Laboratory Results 10/06/17 17:04 10/06/17 17:04 Test 10/06/17 17:04 10/06/17 17:52 Red Blood Count 5.36 M/uL (4.2-5.4) Mean Corpuscular Volume 77.6 fL (80-100) Mean Corpuscular Hemoglobin 25.2 pg (25-34) Mean Corpuscular Hemoglobin Concent 32.5 g/dl (32-36) RDW Standard Deviation 40.6 fL (36.4-46.3) RDW Coefficient of Variation 14.4 % (11.5-14.5) Mean Platelet Volume 9.4 fL (7.4-10.4) Anion Gap 7.0 mmol/L (3-11) Est Creatinine Clear Calc Drug Dose 191.8 ml/min Estimated GFR () 145.6 Estimated GFR (Non- 125.7 BUN/Creatinine Ratio 15.1 (10-20) Calcium Level 8.7 mg/dl (8.5-10.1) Total Bilirubin 0.3 mg/dl (0.2-1) Direct Bilirubin < 0.1 mg/dl (0-0.2) Aspartate Amino Transf (AST/SGOT) 35 U/L (15-37) Alanine Aminotransferase (ALT/SGPT) 62 U/L (12-78) Alkaline Phosphatase 72 U/L (45-117) Total Protein 7.4 gm/dl (6.4-8.2) Albumin 3.6 gm/dl (3.4-5.0) Thyroid Stimulating Hormone (TSH) 0.866 uIu/ml (0.300-4.500) Salicylates Level < 1.7 mg/dl (2.8-20) Acetaminophen Level < 2 ug/ml (10-30) Ethyl Alcohol mg/dL < 3.0 mg/dl (0-3) Urine Color YELLOW Urine Appearance CLEAR (CLEAR) Urine pH 5.0 (4.5-7.5) Urine Specific [place] 1.028 (1.000-1.030) Urine Protein NEG (NEG) Urine Glucose (UA) NEG (NEG) Urine Ketones TRACE (NEG) Urine Occult Blood NEG (NEG) Urine Nitrite NEG (NEG) Urine Bilirubin NEG (NEG) Urine Urobilinogen NEG (NEG) Urine Leukocyte Esterase TRACE (NEG) Urine WBC (Auto) 1-5 /hpf (0-5) Urine RBC (Auto) 0-4 /hpf (0-4) Urine Hyaline Casts (Auto) 0 /lpf (0-5) Urine Epithelial Cells (Auto) >30 /lpf (0-5) Urine Bacteria (Auto) NEG (NEG) Urine Test NEG (NEG) Urine Opiates Screen NEG (NEG) Urine Methadone, Qualitative NEG (NEG) Urine Barbiturates NEG (NEG) Urine Phencyclidine (PCP) Level NEG (NEG) Ur Amphetamine/Methamphetamine NEG (NEG) MDMA (Ecstasy) Screen NEG (NEG) Urine Benzodiazepines Screen NEG (NEG) Urine Cocaine Metabolite NEG (NEG) Urine Marijuana (THC) NEG (NEG) Laboratory results as reviewed by me. ED Course 164: The patient was evaluated in room C10. A complete history and physical exam was performed. 1757: I spoke with [facility]. I informed her that the patient has been moved to room A6. 1949: I spoke with Teresa, [facility]. She is trying to place the patient. 2223: I spoke with [facility]. The patient is voluntary. The patient has been placed at [facility]. Medical Decision This is a 22-year-old female who presents for mental health evaluation. I did perform a limited focused review of portions of the patient's old chart on the electronic medical record. The patient was seen September 24, 2017 for a headache. She was diagnosed with a tension headache. I did evaluate the patient as noted above. I did order and personally review the patient's urinalysis as described above. I did order and review the patient 's blood work as noted in the electronic medical record. I did medically clear the patient. I did have the mental health caseworker evaluate the patient. She agreed with my assessment that the patient requires inpatient psychiatric care in a safe environment. Patient was accepted to the [facility] for voluntary placement. She was transferred to the [facility] securely. Medication Reconcilliation Current Medication List: was personally reviewed by me Blood Pressure Screening Patient's blood pressure: Elevated blood pressure Blood pressure disposition: Referred to PCP Impression Primary Impression: Mood disorder Additional Impression: Suicide gesture Scribe Attestation The scribe's documentation has been prepared under my direct and personally reviewed by me in its entirety. I confirm that the note above accurately reflects all work, treatment, procedures, and medical decision making performed by me. Departure Information Dispostion Mental [facility] Acute Care ([facility]) Referrals [facility] (PCP) Patient Instructions My [facility] Problem Qualifiers Additional Impression: Suicide gesture Encounter type: initial encounter Qualified Codes: X83.8XXA - Intentional self-harm by other specified means, initial encounter
[2017-10-06] MEDS ORDERED: SERT50TA PO (23:57)
== END 2017-10-06 23:36 ==
LOC: C.EDB 16:29 → C.EDA 23:36
DX: R45.851 Suicidal ideations (principal); F32.9 Major depressive disorder, single episode, unspecified; E11.9 Type 2 diabetes mellitus without complications; E28.2 Polycystic ovarian syndrome; Z87.891 Personal history of nicotine dependence; Z91.018 Allergy to other foods; Z83.3 Family history of diabetes mellitus; Z84.1 Family history of disorders of kidney and ureter; Z80.9 Family history of malignant neoplasm, unspecified; Z83.79 Family history of other diseases of the digestive system; Z82.49 Family history of ischemic heart disease and other diseases of the circulatory system

== ENCOUNTER 2017-11-27 14:00 | Emergency (ER) | payer BC ==
[~2017-11-27] VITALS: Ht 170.2 cm; Wt 134.1 kg
[~2017-11-27 14:00] MED LIST changes: -DEXTLIQ81 PO; -IBUP-1050 PO; +IBUP-1277 PO; -IBUP-1451 PO; -ONDA4TAB10 SL; -PHEN-905 PO; +SERT50TA PO
[2017-11-27 14:04] VITALS: TEMP 37; Ht 170.2 cm; Wt 134.1 kg
[2017-11-27] MEDS ORDERED: GLC/500 PO (14:25)
[2017-11-27] MEDS ORDERED: BUPR-79 PO (14:25)
--- NOTE | 2017-11-27 14:43 | DIAGNOSTIC IMAGING REPORT ---
R ANKLE MIN 3 VIEWS ROUTINE CLINICAL HISTORY: Right ankle pain. Inversion injury. COMPARISON: None. DISCUSSION: No fractures or dislocations are visualized. There is a plantar calcaneal spur. The ankle mortise appears intact on these nonstress views. IMPRESSION: No fractures or dislocations identified. Electronically signed by: Naveed Carlin M.D. 11/27/2017 2:41 PM Dictated Date/Time: 11/27/2017 2:40 PM
--- NOTE | 2017-11-27 14:54 | EMERGENCY ROOM VISIT NOTE ---
ED Visit Note First contact with patient: 14:08 CHIEF COMPLAINT: Right ankle injury today HISTORY OF PRESENT ILLNESS: Patient is a 22-year-old female who an injury to the right ankle and foot with a twisting, inversion motion about 6 hours ago. She states that initially, she was able to walk home, took some ibuprofen and took a nap, but when she woke up, she still had pain and difficulty weightbearing. She rates her pain an 8/10. She tried to ice and elevate as well. Denies foot or knee pain. REVIEW OF SYSTEMS: Review of systems as per HPI. All other systems reviewed were negative. 10 systems reviewed. PMH: Electronic medical records are reviewed and summarized as above/below. See Problem List. SOCIAL HISTORY: Patient is a college student who lives locally with roommates. Non-smoker. PHYSICAL EXAM: Vital Signs: Reviewed Nurse's notes. MENTAL STATUS: Obese 22- year-old female who is awake and alert and seated in a wheelchair in no acute. MUSCULOSKELETAL:. The right ankle is swollen and tender over both the medial and lateral aspect but the skin is intact and there is no ligamentous instability. No pain over the 5th metatarsal or fibular head. Lisfranc joint is negative. There is no deformity. The foot and toes are warm and well- perfused. Sensation to pain and light touch is intact. EMERGENCY DEPARTMENT COURSE: X-ray reveals no fracture, only the soft tissue swelling. A compression sleeve and gel splint were applied to the ankle under my direction and the position was satisfactory. Crutches were issued and patient was instructed on a non weight bearing gait. Differential diagnosis include foot verses ankle sprain/fracture, contusion, dislocation. Medication reconciliation: I attest that I have personally reviewed the patient' s current medication list. Blood pressure screening : Patient was found to have normal blood pressure on screening and does not require follow-up. R ANKLE MIN 3 VIEWS ROUTINE CLINICAL HISTORY: Right ankle pain. Inversion injury. COMPARISON: None. DISCUSSION: No fractures or dislocations are visualized. There is a plantar calcaneal spur. The ankle mortise appears intact on these nonstress views. IMPRESSION: No fractures or dislocations identified. Problem List Medical Problems: (1) Anxiety Status: Chronic (2) Depression Status: Chronic (3) GERD (gastroesophageal reflux disease) Status: Chronic (4) Influenza Status: Resolved (5) Influenza Status: Resolved (6) Mood disorder Status: Resolved (7) Otitis media, right Status: Resolved (8) PCOS (polycystic ovarian syndrome) Status: Chronic (9) Suicide gesture Status: Resolved (10) Tension headache Status: Resolved Current/Historical Medications Scheduled Bupropion (Wellbutrin Sr), 150 MG PO DAILY Metformin Hcl (Glucophage), Unknown Dose PO BID Allergies Coded Allergies: No Known Drug Allergy (Verified Allergy, Unknown, n/a, 09/24/17) Uncoded Allergies: APPLES (Allergy, Unknown, gums swell, 05/31/16) Vital Signs Date Time Temp Pulse Resp B/P (MAP) Pulse Ox O2 Delivery O2 Flow Rate FiO2 11/27/17 14:04 37.0 101 20 126/78 98 Room Air Departure Information Impression Primary Impression: Right ankle sprain Referrals [facility] (PCP) Patient Instructions My [facility] Additional Instructions Ibuprofen(Motrin, Advil) may be used for fever or pain. Use 600mg every six hours as needed. Take with food. Avoid using more than 2400mg in a 24 hour period. Do not use 2400mg per day for more than three consecutive days without physician direction. Prolonged inappropriate use can lead to stomach upset or ulcers. This medication can be taken if you need to drive, work, or perform activities which may be dangerous when taking narcotic pain medication. (AND/OR) Acetaminophen(Tylenol) may be used for fever or pain. Use 1000mg every six hours as needed. Avoid using more than 3000mg in a 24 hour period. This medication can be taken if you need to drive, work, or perform activities which may be dangerous when taking narcotic pain medication. Ice compresses for 20 minutes at a time four times daily for 2-3 days. Use the gel splint and crutches as instructed. Rest and elevate your injury. Continue current medications. Return to the ER immediately for any numbness, tingling, severe pain, extreme swelling in the extremity or as needed. Followup with your family doctor or orthopedic surgery if no improvement in 5-7 days.
[2017-11-27 15:35] VITALS: BP 119/82; PULSE 80; O2SAT 99
== END 2017-11-27 15:37 | disposition home or self-care (01) ==
LOC: C.EDB 14:03 → C.EDD 15:37
DX: S93.401A Sprain of unspecified ligament of right ankle, initial encounter (principal); X50.1XXA Overexertion from prolonged static or awkward postures, initial encounter; F32.9 Major depressive disorder, single episode, unspecified; F41.9 Anxiety disorder, unspecified; Z79.899 Other long term (current) drug therapy; Z91.018 Allergy to other foods